=== PATIENT | female | born 1955 | race Two or more races ===

== ENCOUNTER 2017-06-04 21:15 | Inpatient (IN) | payer OTHER, MEDICAID ==
[~2017-06-04] VITALS: Ht 157.5 cm; Wt 105.2 kg
--- NOTE | 2017-06-04 00:20 | NUR ---
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 FEMALE,A/O X3-4,NO SOB,DENIES CHEST PAIN UPON ARRIVAL ON THE UNIT.SALINE LOCK LEFT HAND INTACT AND PATENT.AMBULATORY,NO SKIN ISSUES.CALL LIGHT IN REACH,NEEDS ANTICIPATED. Addendum: 06/05/17 at 0227 jed MCMAHON RN NOTES AT 0 06/04/17 Addendum: 06/05/17 at 0229 jed MCMAHON RN NOTES AT 2315 06/04/17
--- NOTE | 2017-06-04 21:20 | NUR ---
PT BIB FAMILY WITH A C/O MIDSTERNAL CP. PT IS AA&O X4. PT STATED THAT THE LUE HAS TINGLING GOING DOWN THE ARM. PT IS ON THE MONITOR AND CONTINUOUS PULSE OX. PT'S IS AT THE BEDSIDE.
[2017-06-04] MEDS ORDERED: ASPIRIN 81 MG TAB.CHEW ONE (21:22)
[2017-06-04] MEDS ORDERED: NITROGLYCERIN 0.4 MG/TAB BOTTLE ONE (21:22)
[2017-06-04] MEDS ORDERED: NITROGLYCERIN 0.4 MG/TAB BOTTLE SL ONE (21:30)
[2017-06-04] MEDS ORDERED: ASPIRIN 81 MG TAB.CHEW PO ONE (21:30)
[2017-06-04 21:32] LABS: BASOPHILS # (AUTO) 0.2 /CMM (0.0-0.2); EOSINOPHILS # (AUTO) 0.1 /CMM (0.0-0.7); EOSINOPHILS % (AUTO) 0.5 % (0.0-6.0); HEMATOCRIT 43 % (33-45); HEMOGLOBIN 14.7 g/dL (11.5-14.8); LYMPHOCYTES # (AUTO) 2.8 /CMM (0.8-4.8); LYMPHOCYTES % (AUTO) 12.4 % (20.0-44.0); MEAN CORPUSCULAR HEMOGLOBIN 27 PG (26.0-33.0); MEAN CORPUSCULAR HGB CONC 34 g/dl (31.0-36.0); MEAN CORPUSCULAR VOLUME 78 fL (82-100); MONOCYTES # (AUTO) 0.7 /CMM (0.1-1.30); NEUTROPHILS # (AUTO) 18.9 /CMM (1.8-8.9); NEUTROPHILS % (AUTO) 83.1 % (43.0-81.0); PLATELET COUNT (AUTO) 411 /CMM (150-450); RDW COEFFICIENT OF VARIATION 13.5 (11.5-15.0); WHITE BLOOD COUNT (AUTO) 22.7 K/uL (4.3-11.0)
[2017-06-04 21:41] LABS: CALCIUM, SERUM 8.8 mg/dL (8.5-10.1); CARBON DIOXIDE 28 mmol/L (21-32); CHLORIDE 103 mmol/L (98-107); CREATININE 0.6 mg/dL (0.6-1.3); GLUCOSE 131 mg/dL (74-106); SODIUM SERUM 140 mmol/L (136-145); UREA NITROGEN, BLOOD 12 mg/dL (7-18)
--- NOTE | 2017-06-04 21:50 | NUR ---
PT IS C/O HEADACHE. PT STATED THAT HER CP IS GONE. VSS.
[2017-06-04 21:52] LABS: TROPONIN I < 0.017 ng/mL (0.00-0.056)
[2017-06-04] MEDS ORDERED: ACETAMINOPHEN ES 500 MG TABLET ONE (21:52)
--- NOTE | 2017-06-04 21:55 | NUR ---
VERBAL ORDER FROM DR. AMARAL 1000MG TYLENOL PO.
[2017-06-04 22:00] LABS: D-DIMER 0.22 mg/L(FEU (0.17-0.50); INR 0.95 (0.87-1.13); PROTHROMBIN TIME 9.9 SECS (9.5-12.7)
[2017-06-04] MEDS ORDERED: POTASSIUM CHLORIDE 20 MEQ TAB.PRT.SR PO ONE ×2 (22:00→22:23)
[2017-06-04 22:10] LABS: BAND % (MANUAL) 3 % (0.0-5.0); EOSINOPHILS % (MANUAL) 1 % (0-4); LYMPHOCYTES % (MANUAL) 14 % (16-48); MONOCYTES % (MANUAL) 4 % (0-11.0); NEUTROPHILS % (MANUAL) 78 (42-76)
--- NOTE | 2017-06-04 22:17 | NUR ---
CALLED NURSING SUP. FOR TELE BED
--- NOTE | 2017-06-04 22:21 | NUR ---
PT APPEARS TO BE RESTING COMFORTABLY. WILL CONTINUE TO MONITOR THE PT.
--- NOTE | 2017-06-04 22:43 | NUR ---
TELE [id number]
--- NOTE | 2017-06-04 22:51 | NUR ---
CALLING REPORT TO TELE NURSE.
--- NOTE | 2017-06-04 22:55 | NUR ---
REPORT GIVEN TO ANNE JOSE
[2017-06-04 23:00] VITALS: BP 124/52
[2017-06-04] MEDS ORDERED: ZOLPIDEM TARTRATE 5 MG TABLET PO PRN (23:00)
[2017-06-04] MEDS ORDERED: ONDANSETRON HCL/PF 4 MG/2 ML VIAL IVP PRN (23:00)
[2017-06-04] MEDS ORDERED: ACETAMINOPHEN 325 MG TABLET PO PRN (23:00)
[2017-06-04] MEDS ORDERED: LORAZEPAM 1 MG TABLET PO PRN (23:00)
[2017-06-04] MEDS ORDERED: NITROGLYCERIN 0.4 MG/TAB BOTTLE SL PRN (23:00)
[2017-06-04] MEDS ORDERED: ACETAMINOPHEN 325 MG TABLET PO ONE (23:00)
[2017-06-04] MEDS ORDERED: POTA10TA15 PO (23:04)
[2017-06-04] MEDS ORDERED: AMLO5TAB2 PO (23:04)
[2017-06-04] MEDS ORDERED: MECL-102 PO (23:04)
[2017-06-04] MEDS ORDERED: TRIA1CAP6 PO (23:04)
[2017-06-04] MEDS ORDERED: CHOL200026 PO (23:04)
--- NOTE | 2017-06-04 23:15 | NUR ---
SP[employer] CLERKTURF SALES PERSON NOTES RECEIVED FROM ER PER JOSHUA THIS 62 Y.O. FEMALE,A/O X3-4,NO SOB,DENIES CHEST PAIN UPON ARRIVAL ON THE UNIT.SALINE LOCK LEFT HAND INTACT AND PATENT.AMBULATORY,NO SKIN ISSUES.CALL LIGHT IN REACH,NEEDS ANTICIPATED.
[2017-06-04 23:26] VITALS: BP 124/52
--- NOTE | 2017-06-05 01:00 | NUR ---
MS RN NOTES MD VISIT SEEN BY DR STRAUSS WITH NEW ORDER NOTED AND CARRIED OUT.
[2017-06-05] MEDS ORDERED: POTASSIUM CHLORIDE 20 MEQ TAB.PRT.SR PO ONE ×2 (02:00→02:14)
--- NOTE | 2017-06-05 02:18 | NUR ---
COMMUNICATIONS PROFESSOR NOTES K LEVEL 3.0,MEDICATED WITH K DUR 40 MEQ PO ORDERED.
[2017-06-05 04:00] VITALS: BP 106/67
--- NOTE | 2017-06-05 06:13 | NUR ---
MS RN NOTES FAIRLY RESTED,WILL ADVISE NURSE ASSIGNED TO HOLD BREAKFAST 'TILL SEEN BY CARDIO FOR CONSULT.DENIES CHEST PAIN SINCE SHE CAME ON THE UNIT.IN NO ACUTE DISTRESS.WILL ENDORSE TO DAY NURSE FOR CARY.
[2017-06-05 06:34] LABS: BASOPHILS # (AUTO) 0.1 /CMM (0.0-0.2); BASOPHILS % (AUTO) 0.4 % (0.0-2.0); EOSINOPHILS # (AUTO) 0.3 /CMM (0.0-0.7); EOSINOPHILS % (AUTO) 1.9 % (0.0-6.0); HEMATOCRIT 38 % (33-45); HEMOGLOBIN 13.1 g/dL (11.5-14.8); LYMPHOCYTES # (AUTO) 2.7 /CMM (0.8-4.8); LYMPHOCYTES % (AUTO) 19.8 % (20.0-44.0); MEAN CORPUSCULAR HEMOGLOBIN 27 PG (26.0-33.0); MEAN CORPUSCULAR HGB CONC 34 g/dl (31.0-36.0); MEAN CORPUSCULAR VOLUME 79 fL (82-100); MONOCYTES # (AUTO) 0.6 /CMM (0.1-1.30); MONOCYTES % (AUTO) 4.5 % (2.0-12.0); NEUTROPHILS # (AUTO) 10.1 /CMM (1.8-8.9); NEUTROPHILS % (AUTO) 73.4 % (43.0-81.0); PLATELET COUNT (AUTO) 346 /CMM (150-450); RDW COEFFICIENT OF VARIATION 14.8 (11.5-15.0); RED BLOOD CELL COUNT(AUTO) 4.82 MIL/uL (4.0-5.2); WHITE BLOOD COUNT (AUTO) 13.7 K/uL (4.3-11.0)
[2017-06-05 06:41] LABS: INR 0.96 (0.87-1.13)
[2017-06-05 07:03] LABS: CALCIUM, SERUM 8.4 mg/dL (8.5-10.1); CREATININE 0.6 mg/dL (0.6-1.3); MAGNESIUM 1.9 mg/dL (1.8-2.4); PHOSPHORUS 3.7 mg/dL (2.5-4.9); POTASSIUM 4.2 mmol/L (3.5-5.1)
[2017-06-05 07:27] LABS: IRON, SERUM 66 ug/dl (50-175); TOTAL IRON BINDING CAPACITY 298 ug/dl (250-450)
[2017-06-05] MEDS ORDERED: REGADENOSON 0.4 MG/5 ML DISP.SYRIN IVP ONE (07:30)
[2017-06-05 08:00] VITALS: BP 134/69
--- NOTE | 2017-06-05 08:00 | NUR ---
MS RN OPENING NOTES PATIENT IN BED ALERT ORIENTED.HOB ELEVATED. NO SOB NOTED. NO ACUTE DISTRESS NOTED. BREATHING REGULAR AND UNLABORED. SKIN IS SOFT AND WARM TO TOUCH. IV ACCES PATENT AND INTACT. NO REDNESS. NO S/SX OF INFILTRATION NOTED. SAFETY MEASURE IN PLACE. CALL LIGHT WITHIN REACH. WILL CONTINUE TO MONITOR ACCORDINGLY.
[2017-06-05] MEDS ORDERED: MORPHINE SULFATE INJ 4 MG/ML DISP.SYRIN IV PRN ×2 (09:00)
[2017-06-05] MEDS ORDERED: METOPROLOL TARTRATE 25 MG TABLET PO SCH (09:00)
[2017-06-05] MEDS ORDERED: ASPIRIN 81 MG TAB.CHEW PO SCH (09:00)
[2017-06-05 16:00] VITALS: BP 127/59
[2017-06-05] MEDS ORDERED: SIMV20TA6 PO (18:07)
[2017-06-05] MEDS ORDERED: METO25TA20 PO (18:07)
[2017-06-05] MEDS ORDERED: ASPI-1169 PO (18:07)
--- NOTE | 2017-06-05 19:00 | NUR ---
DISCHARGE ORDERS WAS JUST PUT IN.CLARIFIED WITH PHYLICIA ABOUT PRESCRIPTION OF LOPRESSOR.DISCHARGE INSTRUCTIONS GIVEN TO THE PT.AWAITING FOR PT'S 'S ARRIVAL.ENDORSED TO NIGHT NURSE CARE.
--- NOTE | 2017-06-05 19:30 | NUR ---
MS RN NOTES RECEIVED SITTING COMFORTABLY ON EDGE OF BED,DENIES CHEST PAIN.PATIENT INFORMED THAT SHE'S GOING HOME TONIGHT VITALS WITH IN NORMAL LIMITS. WILL PICK HIM UP.
--- NOTE | 2017-06-05 19:45 | NUR ---
MS RN NOTES DISCHARGE INSTRUCTION GIVEN AND SIGNED,COPY PROVIDED,PRESCRIPTION CALLED IN TO [facility] BY PROVIDER.VITAL SIGNS WITH IN NORMAL LIMITS.HOME WITH WITH OWN PRIVATE TRANSPORTATION,IN STABLE CONDITION.
[2017-06-05 19:59] VITALS: BP 126/61
[2017-06-05] MEDS ORDERED: SIMVASTATIN 20 MG TABLET PO SCH (22:00)
== END 2017-06-05 19:45 | disposition home or self-care (01) | DRG 205 ==
LOC: ER 21:21 → TELE 22:57 → MED 06-05 08:48
PROVIDERS: ADMIT Internal Medicine; ATTEND Internal Medicine
DX: M94.0 Chondrocostal junction syndrome [Tietze] (principal); R53.2 Functional quadriplegia; D68.59 Other primary thrombophilia; E66.01 Morbid (severe) obesity due to excess calories; I11.0 Hypertensive heart disease with heart failure; I50.30 Unspecified diastolic (congestive) heart failure; Z68.41 Body mass index [BMI] 40.0-44.9, adult; E78.5 Hyperlipidemia, unspecified; E87.6 Hypokalemia; G47.33 Obstructive sleep apnea (adult) (pediatric); R73.03 Prediabetes; D72.829 Elevated white blood cell count, unspecified; Z85.528 Personal history of other malignant neoplasm of kidney; R42 Dizziness and giddiness; M19.90 Unspecified osteoarthritis, unspecified site; Z79.82 Long term (current) use of aspirin; Z79.899 Other long term (current) drug therapy
CPT/HCPCS: 36415; 71045-TC; 80048-TC; 80061-TC; 82150-TC; 83540-TC; 83690-TC; 83735-TC; 84100-TC; 84484-TC; 85025-TC; 85378-TC; 85610-TC; 85730-TC; 87040-TC; 87081-TC; 93307-TC; A4606; A9502; J2785; Z7610

== ENCOUNTER 2017-09-04 23:27 | Emergency (ER) | payer OTHER, MEDICAID ==
[~2017-09-04] VITALS: Ht 157.5 cm; Wt 104.3 kg
[~2017-09-04 23:27] MED LIST: AMLO5TAB7 PO; ASPI-1169 PO; CHOL200026 PO; MECL-102 PO; METO25TA20 PO; POTA10TA15 PO; SIMV20TA6 PO; TRIA1CAP6 PO
--- NOTE | 2017-09-04 23:50 | NUR ---
Note rosie in ED - 09/05/17 at 0028 by ANABELLE 20G IV TO L AC X 2 ATTEMPTS USING ASEPTIC TECH, BLOOD HANDED OVER TO THE LAB AT BEDSIDE. IV FLUSHES EASILY WITH NS, NO S/S INFILTRATION NOTED.
--- NOTE | 2017-09-04 23:55 | NUR ---
PT AMBULATORY TO ER BED 14. BIBFAMILY FROM HOME C/O N/V WITH HYPERTENSION X 3 HOURS. PT PLACED IN GOWN AND ON FLIGHT FOLLOWER. VSS/RESP EVEN UNLABORED/NAD NOTED/AFEBRILE/SKIN WARM AND DRY/AOX4. AWAITING MD STONE.
[2017-09-04] MEDS ORDERED: ONDANSETRON HCL/PF 4 MG/2 ML VIAL ONE (23:57)
[2017-09-05] MEDS ORDERED: IV NS 0.9% 1,000 ML BAG IV ONE
[2017-09-05] MEDS ORDERED: ONDANSETRON HCL/PF 4 MG/2 ML VIAL IVP ONE
--- NOTE | 2017-09-05 00:01 | NUR ---
20G IV TO L AC X 2 ATTEMPTS USING ASEPTIC TECH, BLOOD HANDED OVER TO THE LAB AT BEDSIDE. IV FLUSHES EASILY WITH NS, NO S/S INFILTRATION NOTED.
[2017-09-05 00:13] LABS: BASOPHILS # (AUTO) 0.1 /CMM (0.0-0.2); BASOPHILS % (AUTO) 0.2 % (0.0-2.0); EOSINOPHILS % (AUTO) 0.5 % (0.0-6.0); HEMATOCRIT 42 % (33-45); HEMOGLOBIN 14.2 g/dL (11.5-14.8); LYMPHOCYTES # (AUTO) 2.5 /CMM (0.8-4.8); LYMPHOCYTES % (AUTO) 10.6 % (20.0-44.0); MEAN CORPUSCULAR HGB CONC 34 g/dl (31.0-36.0); MEAN CORPUSCULAR VOLUME 79 fL (82-100); MONOCYTES % (AUTO) 4.1 % (2.0-12.0); NEUTROPHILS # (AUTO) 20.3 /CMM (1.8-8.9); NEUTROPHILS % (AUTO) 84.6 % (43.0-81.0); PLATELET COUNT (AUTO) 347 /CMM (150-450); RDW COEFFICIENT OF VARIATION 14.8 (11.5-15.0); RED BLOOD CELL COUNT(AUTO) 5.33 MIL/uL (4.0-5.2)
--- NOTE | 2017-09-05 00:29 | NUR ---
PT TO CT VIA STRETCHER.
[2017-09-05 00:39] LABS: TROPONIN I < 0.017 ng/mL (0.00-0.056)
[2017-09-05 00:40] LABS: CALCIUM, SERUM 8.6 mg/dL (8.5-10.1); CARBON DIOXIDE 27 mmol/L (21-32); CHLORIDE 103 mmol/L (98-107); CREATININE 0.7 mg/dL (0.6-1.3); GLUCOSE 137 mg/dL (74-106); POTASSIUM 3.1 mmol/L (3.5-5.1); SODIUM SERUM 143 mmol/L (136-145); UREA NITROGEN, BLOOD 17 mg/dL (7-18)
[2017-09-05 00:41] LABS: APPEARANCE,URINE CLEAR (CLEAR); BILIRUBIN,URINE NEGATIVE (NEGATIVE); BLOOD, URINE 1+ Ery/uL (NEGATIVE); COLOR,URINE YELLOW (YELLOW); KETONES,URINE NEGATIVE (NEGATIVE); LEUKOCYTE ESTERASE ,URINE TRACE (NEGATIVE); NITRITE, URINE NEGATIVE (NEGATIVE); PROTEIN,URINE NEGATIVE (NEGATIVE); UGLUCOSE NEGATIVE (NEGATIVE); UROBILINOGEN,URINE 0.2 EU/dL (0.2)
[2017-09-05 00:43] LABS: ALANINE AMINOTRANSFERASE 45 U/L (12-78); ALBUMIN 3.8 g/dL (3.4-5.0); ALKALINE PHOSPHATASE 76 U/L (46-116); ASPARTATE AMINOTRANSFERASE 24 U/L (15-37); BILIRUBIN,DIRECT 0.1 mg/dL (0.0-0.2); BILIRUBIN,TOTAL 0.4 mg/dL (0.2-1.0); LIPASE 199 U/L (73-393); TOTAL PROTEIN, SERUM 7.9 g/dL (6.4-8.2)
[2017-09-05 00:45] LABS: BACTERIA,URINE Moderate /HPF (None Seen); SQUAMOUS EPITHELIAL CELL,UR Few /HPF (None Seen)
--- NOTE | 2017-09-05 00:47 | NUR ---
PT BACK FROM CT.
[2017-09-05] MEDS ORDERED: POTASSIUM CHLORIDE 20 MEQ TAB.PRT.SR PO ONE (02:30)
--- NOTE | 2017-09-05 02:42 | NUR ---
IV removed. Catheter intact and site benign. Pressure and 4x4 applied to site. No bleeding noted. Patient discharged to home in stable condition. Written and verbal after care instructions given. Patient verbalizes understanding of instruction. Patient ambulatory with a steady gait.
[2017-09-05 02:43] VITALS: BP 141/80
== END 2017-09-05 02:43 | disposition home or self-care (01) ==
LOC: ER 23:28
DX: R10.33 Periumbilical pain (principal); E87.6 Hypokalemia; R11.2 Nausea with vomiting, unspecified; E11.9 Type 2 diabetes mellitus without complications; I10 Essential (primary) hypertension; Z79.82 Long term (current) use of aspirin
CPT/HCPCS: 36415; 71045; 74176; 80048; 80076; 81001; 83690; 84484; 85025; 87086; 96361; 96374; 99285; A4606; J2405; J7030; 81000-TC; Z7610